=== PATIENT | male | born 1970 | race African-American/Black ===

== ENCOUNTER 2017-01-24 01:12 | Emergency (ER) | payer MEDICAID ==
[~2017-01-24] VITALS: Ht 177.8 cm; Wt 110.0 kg
[2017-01-24] MEDS ORDERED: ONDANSETRON ODT 4 MG ONE (01:57)
[2017-01-24] MEDS ORDERED: OXYcodone/APAP 5/325MG TABLET ONE (01:57)
[2017-01-24] MEDS ORDERED: OXYcodone/APAP 5/325MG TABLET PO ONE (02:00)
[2017-01-24] MEDS ORDERED: ONDANSETRON ODT 4 MG PO ONE (02:00)
[2017-01-24 02:46] VITALS: BP 135/74
== END 2017-01-24 02:48 | disposition home or self-care (01) ==
LOC: ED 02:42
DX: S83.91XA Sprain of unspecified site of right knee, initial encounter (principal); X58.XXXA Exposure to other specified factors, initial encounter; Y93.89 Activity, other specified; Y92.69 Other specified industrial and construction area as the place of occurrence of the external cause; Y99.8 Other external cause status
CPT/HCPCS: 29505; 73564; 99284; Q0162

== ENCOUNTER 2017-03-03 11:14 | Emergency (ER) | payer MEDICAID ==
[~2017-03-03] VITALS: Ht 177.8 cm; Wt 107.5 kg
[2017-03-03 11:22] VITALS: BP 144/78
[2017-03-03] MEDS ORDERED: FLUORESCEIN OPHTHALMIC 1 MG STRIP ONE (11:54)
[2017-03-03] MEDS ORDERED: PROPARACAINE OPHTH 0.5%, 15ML ONE (11:54)
[2017-03-03] MEDS ORDERED: FLUORESCEIN OPHTHALMIC 1 MG STRIP EACHEYE ONE (12:00)
[2017-03-03] MEDS ORDERED: PROPARACAINE OPHTH 0.5%, 15ML EACHEYE ONE (12:00)
== END 2017-03-03 12:35 | disposition home or self-care (01) ==
LOC: ED 12:25
DX: H10.023 Other mucopurulent conjunctivitis, bilateral (principal)
CPT/HCPCS: 99283

== ENCOUNTER 2017-05-11 14:23 | Emergency (ER) | payer MEDICAID ==
[~2017-05-11] VITALS: Ht 177.8 cm; Wt 102.5 kg
[2017-05-11] MEDS ORDERED: SODIUM CHLORIDE 0.9% 1,000ML IVBOLUS ONE (16:00)
[2017-05-11] MEDS ORDERED: SODIUM CHLORIDE FLUSH 10ML SYR IVF ONE (16:00)
[2017-05-11 16:12] LABS: MEAN CORPUSCULAR HEMOGLOBIN 27.7 pg (27.5-34.5); MEAN CORPUSCULAR HGB CONC 32.3 g/dL (33.2-36.2); MEAN CORPUSCULAR VOLUME 85.7 fL (81-97); MEAN PLATELET VOLUME 8.4 fL (7.4-10.4); PLATELET COUNT 507 x10^3/uL (130-400); RED BLOOD COUNT 5.14 x10^6/uL (4.38-5.82); RED CELL DISTRIBUTION WIDTH 14.7 % (9.4-14.8)
[2017-05-11 16:20] LABS: ALBUMIN 3.4 g/dL (3.4-5.0); ANION GAP 8 mmol/L (5-15); CALCIUM 8.5 mg/dL (8.5-10.1); CHLORIDE 105 mmol/L (98-107); CREATININE 0.92 mg/dL (0.7-1.3)
[2017-05-11 16:30] LABS: BASOPHILS % (AUTO) 1 % (0-1); EOSINOPHILS % (AUTO) 1 % (1-7); LYMPHOCYTES # (AUTO) 1.81 x10^3/uL (1-3.4); LYMPHOCYTES % (AUTO) 12 % (22-44); MD SCAN; MONOCYTES # (AUTO) 2.04 x10^3/uL (0.2-0.8); MONOCYTES % (AUTO) 14 % (2-9); NEUTROPHILS # (AUTO) 10.48 x10^3/uL (1.8-6.8); NEUTROPHILS % (AUTO) 71 % (42-75)
[2017-05-11] MEDS ORDERED: KETOROLAC 30 MG/1 ML IM ONE (16:30)
[2017-05-11] MEDS ORDERED: KETOROLAC 30 MG/1 ML ONE (16:31)
[2017-05-11] MEDS ORDERED: CEFTRIAXONE 1,000 MG ONE (16:43)
[2017-05-11 16:55] VITALS: BP 120/90
[2017-05-11] MEDS ORDERED: CEFTRIAXONE 1,000 MG IM ONE (17:00)
== END 2017-05-11 17:34 | disposition home or self-care (01) ==
LOC: ED 16:52
DX: J01.00 Acute maxillary sinusitis, unspecified (principal); D72.829 Elevated white blood cell count, unspecified; M19.90 Unspecified osteoarthritis, unspecified site
CPT/HCPCS: 36415; 71046; 80048; 82040; 85025; 96372; 99285; J0696; J1885

== ENCOUNTER 2018-06-18 19:16 | Emergency (ER) | payer MEDICAID ==
[~2018-06-18] VITALS: Ht 177.8 cm; Wt 95.3 kg
[2018-06-18 19:25] VITALS: BP 89/58
--- NOTE | 2018-06-18 21:11 | NUR ---
NOT IN LOBBY @346
--- NOTE | 2018-06-18 21:38 | NUR ---
ASSOCIATE PROFESSOR OF FORESTRY: NIL WHEN CALLED FOR REPEAT VS
--- NOTE | 2018-06-18 22:42 | NUR ---
TOW OPERATOR: NIL WHEN CALLED FOR REPEAT VS
--- NOTE | 2018-06-18 22:44 | NUR ---
NO ANSWER CALLED FOR ROOM, PT NOT IN LOBBY
[2018-06-19] MEDS ORDERED: HEPARIN 5,000 UNITS/ML, 1ML ONE (01:05)
== END 2018-06-18 22:45 | disposition left against medical advice (07) ==
LOC: ED 22:39
DX: J02.9 Acute pharyngitis, unspecified (principal)
CPT/HCPCS: 99281

== ENCOUNTER 2018-06-19 20:02 | Inpatient (IN) | payer MEDICAID ==
[~2018-06-19] VITALS: Ht 177.8 cm; Wt 93.2 kg
[2018-06-19] MEDS ORDERED: AMPICILLIN/SULBACTAM 3 GM in SODIUM CHLORIDE 0.9% 100 ML IV ONE (20:30)
[2018-06-19] MEDS ORDERED: SODIUM CHLORIDE FLUSH 10ML SYR IVF ONE (20:30)
[2018-06-19] MEDS ORDERED: DEXAMETHASONE 4 MG/ML, 1ML IVPush ONE (20:30)
[2018-06-19] MEDS ORDERED: SODIUM CHLORIDE 0.9% 1,000ML IVBOLUS ONE (21:00)
[2018-06-19] MEDS ORDERED: ACETAMINOPHEN 500 MG TABLET ONE (21:15)
[2018-06-19 21:22] LABS: MEAN CORPUSCULAR HEMOGLOBIN 27.7 pg (27.5-34.5); MEAN CORPUSCULAR HGB CONC 31.9 g/dL (33.2-36.2); MEAN CORPUSCULAR VOLUME 86.7 fL (81-97); MEAN PLATELET VOLUME 8.8 fL (7.4-10.4); PLATELET COUNT 298 x10^3/uL (130-400); RED BLOOD COUNT 5.73 x10^6/uL (4.38-5.82); RED CELL DISTRIBUTION WIDTH 14.2 % (9.4-14.8)
[2018-06-19 21:25] LABS: MD YES
[2018-06-19] MEDS ORDERED: ONDANSETRON 2MG/ML, 2ML IVPush ONE (21:30)
[2018-06-19 21:33] LABS: ALBUMIN 3.4 g/dL (3.4-5.0); ANION GAP 6 mmol/L (5-15); CHLORIDE 105 mmol/L (98-107); CREATININE 1.07 mg/dL (0.7-1.3)
[2018-06-19] MEDS ORDERED: ACETAMINOPHEN 500 MG TABLET PO ONE (21:40)
--- NOTE | 2018-06-19 21:40 | NUR ---
PT HERE FOR SORE THROAT X 5 DAYS, FEVER, COUGH AND CONGESTION. PT MEDICATED WITH TYLENOL. HR ELEVATED. PA AT BEDSIDE.
[2018-06-19] MEDS ORDERED: ONDANSETRON 2MG/ML, 2ML ONE (21:50)
[2018-06-19] MEDS ORDERED: DEXAMETHASONE 4 MG/ML, 1ML ONE (21:50)
[2018-06-19 22:03] LABS: BAND#(MANUAL) 0.16 x10^3/uL; BANDS%(MANUAL) 1 % (0-7); BASOS#(MANUAL) 0.16 x10^3/uL (0-0.1); BASOS% (MANUAL) 1 % (0-1); LYMPH#(MANUAL) 1.96 x10^3/uL (1-3.4); LYMPHS% (MANUAL) 12 % (22-44); MONOS% (MANUAL) 8 % (2-9); SEG#(MANUAL) 12.71 x10^3/uL (1.8-6.8); SEGS% (MANUAL) 78 % (42-75)
[2018-06-19 22:04] LABS: <PLATELET ESTIMATE> ADEQUATE; <PLT MORPHOLOGY> NORMAL PLT MORPH; <RBC MORPHOLOGY> NORMAL
--- NOTE | 2018-06-19 22:26 | NUR ---
PIV PLACED. ABX AND NS RUNNING. PT SAYS PAIN HAS IMPROVED. MD AT BEDSIDE.CALL LIGHT IN REACH
[2018-06-19 22:27] LABS: RAPID INFLUENZA A Negative (Negative); RAPID INFLUENZA B Negative (Negative)
--- NOTE | 2018-06-19 22:51 | NUR ---
PT TO CT
[2018-06-19] MEDS ORDERED: OMNIPAQUE 350 MG/ML, 100ML BOTTLE ONE (23:03)
--- NOTE | 2018-06-19 23:33 | NUR ---
PT BACK FROM CT. HR SLIGHTLY IMPROVED. PT TO BE ADMITTED. PT AWARE. CALL LIGHT IN REACH
[2018-06-19] MEDS ORDERED: RACEPINEPHRINE INH 2.25%, 0.5ML ONE (23:45)
[2018-06-20] MEDS ORDERED: RACEPINEPHRINE INH 2.25%, 0.5ML NPPB ONE
--- NOTE | 2018-06-20 00:30 | NUR ---
PT GIVEN ICE CHIPS.OK PER MD. HR RATE IMPROVED. PT HAS SUCTION TO ASSIST WITH SECRETIONS. CALL LIGHT IN REACH
--- NOTE | 2018-06-20 02:27 | NUR ---
BREAK RN-PT WANTING TO LEAVE AND SIGN OUT AMA BUT WANTS RX'S. HOSPITALIST NOTIFIED AND IS TALKING TO PT AT THIS TIME.
--- NOTE | 2018-06-20 02:48 | NUR ---
PT DEMANDING FOOD NOW THAT HIS THROAT FEELS BETTER. WENT OF RISKS OF EATING INCLUDING THE POTENTIAL OF ASPIRATION. PT UNDERSTANDS RISK AND STILL WANTS FOOD. PT SIGNED AMA PAPERS THAT HE UNDERSTANDS POTENTIAL RISK. THIS RN WITNESSED SIGNATURE. PT GIVEN APPLESAUCE, PUDDING AND CEREAL. PT HAPPY WITH THIS. PT HAS NO OTHER NEEDS. CALL LIGHT IN REACH
--- NOTE | 2018-06-20 03:43 | NUR ---
PT FINISHED FOOD AND IS BREATHING WELL. VSS. PT GIVEN WARM BLANKET AND IS NOW SLEEPING. PT HAS NO OTHER NEEDS. CALL LIGHT IN REACH
[2018-06-20] MEDS ORDERED: ONDANSETRON 2MG/ML, 2ML IVPush PRN (04:30)
[2018-06-20] MEDS ORDERED: DEXAMETHASONE 20 MG in SODIUM CHLORIDE 0.9% 50 ML IV SCH (04:30)
[2018-06-20] MEDS ORDERED: morphine SULFATE 10 MG/ML, 1ML IVPush PRN (04:30)
[2018-06-20] MEDS ORDERED: AMPICILLIN/SULBACTAM 3 GM in SODIUM CHLORIDE 0.9% 100 ML IV SCH (04:30)
[2018-06-20] MEDS ORDERED: LACTATED RINGERS 1,000 ML IV SCH (04:30)
[2018-06-20] MEDS ORDERED: KETOROLAC 30 MG/1 ML IV PRN (04:30)
[2018-06-20] MEDS ORDERED: ACETAMINOPHEN 325 MG TABLET PO PRN (04:30)
--- NOTE | 2018-06-20 05:08 | NUR ---
ABX RUNNING. PT IS RESTING WITH NO NEEDS AT THIS TIME. CALL LIGHT IN REACH
[2018-06-20 05:27] LABS: BASOPHILS % (AUTO) 0 % (0-1); EOSINOPHILS % (AUTO) 0 % (1-7); LYMPHOCYTES # (AUTO) 0.51 x10^3/uL (1-3.4); LYMPHOCYTES % (AUTO) 3 % (22-44); MD NO; MEAN CORPUSCULAR HEMOGLOBIN 28.8 pg (27.5-34.5); MEAN CORPUSCULAR HGB CONC 33.1 g/dL (33.2-36.2); MEAN CORPUSCULAR VOLUME 87.2 fL (81-97); MEAN PLATELET VOLUME 8.8 fL (7.4-10.4); MONOCYTES # (AUTO) 0.79 x10^3/uL (0.2-0.8); MONOCYTES % (AUTO) 5 % (2-9); NEUTROPHILS # (AUTO) 14.17 x10^3/uL (1.8-6.8); NEUTROPHILS % (AUTO) 92 % (42-75); PLATELET COUNT 304 x10^3/uL (130-400); RED BLOOD COUNT 5.15 x10^6/uL (4.38-5.82); RED CELL DISTRIBUTION WIDTH 14.6 % (9.4-14.8)
[2018-06-20 05:36] LABS: ANION GAP 7 mmol/L (5-15); CALCIUM 8.7 mg/dL (8.5-10.1); CHLORIDE 104 mmol/L (98-107); CREATININE 1.09 mg/dL (0.7-1.3)
[2018-06-20 06:44] VITALS: BP 127/74
[2018-06-20] MEDS ORDERED: FAMOTIDINE 20 MG/2 ML IVPush SCH (09:00)
== END 2018-06-20 07:50 | disposition left against medical advice (07) | DRG 153 ==
LOC: ED 21:27 → EDIP 06-20 00:20 → CSU 06-20 05:50
PROVIDERS: ADMIT Family Medicine; ATTEND Family Medicine
DX: J02.0 Streptococcal pharyngitis (principal); J38.4 Edema of larynx; F17.200 Nicotine dependence, unspecified, uncomplicated; J35.2 Hypertrophy of adenoids; Z87.442 Personal history of urinary calculi; Z53.21 Procedure and treatment not carried out due to patient leaving prior to being seen by health care provider; M19.90 Unspecified osteoarthritis, unspecified site; R00.0 Tachycardia, unspecified
CPT/HCPCS: 36415; 70491; 71045; 80048; 82040; 83605; 85025; 87040; 87081; 87400; 93005; 96365; 96375; 99291; G0378; J0295; J1100; J2405; Q9967; J7030; J7120

== ENCOUNTER 2018-11-07 21:23 | Emergency (ER) | payer MEDICAID ==
[~2018-11-07] VITALS: Ht 177.8 cm; Wt 98.6 kg
[2018-11-07 21:40] VITALS: BP 188/71
== END 2018-11-07 22:35 | disposition home or self-care (01) ==
LOC: ED 21:57
DX: N34.1 Nonspecific urethritis (principal); M19.90 Unspecified osteoarthritis, unspecified site
CPT/HCPCS: 87491; 87591; 96372; 99283; J0696

== ENCOUNTER 2019-03-11 07:01 | Emergency (ER) | payer MEDICAID ==
[~2019-03-11] VITALS: Ht 177.8 cm; Wt 100.0 kg
[2019-03-11 07:03] VITALS: BP 125/77
[2019-03-11] MEDS ORDERED: KETOROLAC 30 MG/1 ML ONE (07:14)
[2019-03-11] MEDS ORDERED: OXYcodone/APAP 5/325MG TABLET ONE (07:14)
--- NOTE | 2019-03-11 07:15 | NUR ---
THIS IS A 48 YO M BIB [facility] FOR RIGHT KNEE PAIN. THEY PATIENT BELIEVES HE IS HAVING A GOUT FLARE UP. RESPIRATIONS ARE EVEN AND UNLABORED. PATIENT IS IN NO ACUTE DISTRESS. PATIENT STATES THAT HE LAST USED METH LAST NIGHT FOR THE PAIN. GIVEN HEAT PACK UPON REQUEST. PATIENT IS RESTING ON GURNEY WITH SIDE RAILS UPX2 AND CALL LIGHT IN REACH.
--- NOTE | 2019-03-11 07:24 | NUR ---
PATIENT MEDICATED PER EMAR. TRANSPORTED TO RADIOLOGY.
[2019-03-11] MEDS ORDERED: OXYcodone/APAP 5/325MG TABLET PO ONE (07:30)
[2019-03-11] MEDS ORDERED: KETOROLAC 30 MG/1 ML IM ONE (07:30)
[2019-03-11 08:04] LABS: BASOPHILS # (AUTO) 0.03 x10^3/uL (0-0.1); BASOPHILS % (AUTO) 0 % (0-1); EOSINOPHILS # (AUTO) 0.11 x10^3/uL (0-0.4); EOSINOPHILS % (AUTO) 1 % (1-7); LYMPHOCYTES # (AUTO) 1.16 x10^3/uL (1-3.4); LYMPHOCYTES % (AUTO) 11 % (22-44); MD NO; MEAN CORPUSCULAR HEMOGLOBIN 28.2 pg (27.5-34.5); MEAN CORPUSCULAR HGB CONC 32.2 g/dL (33.2-36.2); MEAN CORPUSCULAR VOLUME 87.8 fL (81-97); MEAN PLATELET VOLUME 7.8 fL (7.4-10.4); MONOCYTES # (AUTO) 1.42 x10^3/uL (0.2-0.8); MONOCYTES % (AUTO) 14 % (2-9); NEUTROPHILS # (AUTO) 7.83 x10^3/uL (1.8-6.8); NEUTROPHILS % (AUTO) 74 % (42-75); PLATELET COUNT 390 x10^3/uL (130-400); RED BLOOD COUNT 4.91 x10^6/uL (4.38-5.82); RED CELL DISTRIBUTION WIDTH 15.5 % (9.4-14.8)
--- NOTE | 2019-03-11 08:13 | NUR ---
PATIENT USED URINAL.
--- NOTE | 2019-03-11 08:44 | NUR ---
PATIENT DEMONSTRATED PROPER USE OF CRUTCHES.
== END 2019-03-11 09:04 | disposition home or self-care (01) ==
LOC: ED 08:46
DX: M17.11 Unilateral primary osteoarthritis, right knee (principal); M25.461 Effusion, right knee; F17.210 Nicotine dependence, cigarettes, uncomplicated
CPT/HCPCS: 36415; 73564; 84550; 85025; 96372; 99284; J1885

== ENCOUNTER 2019-09-05 06:54 | Observation (INO) | payer MEDICAID ==
[~2019-09-05] VITALS: Ht 172.7 cm; Wt 125.3 kg
[2019-09-05] MEDS ORDERED: AMPICILLIN/SULBACTAM 3 GM in SODIUM CHLORIDE 0.9% 100 ML IV ONE (07:30)
[2019-09-05] MEDS ORDERED: HYDROmorphone 1 MG/ML, 1ML INJ IVPush PRN (07:30)
[2019-09-05] MEDS ORDERED: SODIUM CHLORIDE FLUSH 10ML SYR IVF ONE (07:30)
[2019-09-05] MEDS ORDERED: HYDROmorphone 1 MG/ML, 1ML INJ ONE (07:34)
--- NOTE | 2019-09-05 07:42 | NUR ---
PT HAS CO RIGHT KNEE PAIN. TITANIUM KNEE REPLACEMENT LAST MONTH. KNEE IS SWOLLEN AND WARM TO TOUCH. PAIN 7/10. SYMPTOMS WORSENED W IN LAST WEEK. PEDAL PULSE 2+. CMS INTACT. PT DENIES CP, SOB. VSS, IV ESTABLSIHED, MEDICATED PER ORDERS. BLOOD CULTURES DRAWN.
[2019-09-05 07:53] LABS: HCT (SEDRATE) 40.5 % (39.2-51.8)
--- NOTE | 2019-09-05 08:03 | NUR ---
PT STATES PAIN IS 3/10. APPLIED 2 L O2 WHILE SLEEPING. RA 87% SLEEPING. NOW 97% 2L O2
[2019-09-05 08:05] LABS: ALANINE AMINOTRANSFERASE 18 U/L (12-78); ALBUMIN 3.1 g/dL (3.4-5.0); ANION GAP 9 mmol/L (5-15); CALCIUM 8.7 mg/dL (8.5-10.1); CHLORIDE 109 mmol/L (98-107); CREATININE 0.93 mg/dL (0.7-1.3)
[2019-09-05 08:11] LABS: ALKALINE PHOSPHATASE 135 U/L (45-117); BILIRUBIN,TOTAL 0.2 mg/dL (0.2-1.0); TOTAL PROTEIN 7.8 g/dL (6.4-8.2)
[2019-09-05 08:33] LABS: BASOPHILS # (AUTO) 0.05 x10^3/uL (0-0.1); BASOPHILS % (AUTO) 1 % (0-1); EOSINOPHILS # (AUTO) 0.25 x10^3/uL (0-0.4); EOSINOPHILS % (AUTO) 3 % (1-7); LYMPHOCYTES # (AUTO) 1.67 x10^3/uL (1-3.4); LYMPHOCYTES % (AUTO) 20 % (22-44); MD NO; MEAN CORPUSCULAR HEMOGLOBIN 27.7 pg (27.5-34.5); MEAN CORPUSCULAR HGB CONC 32.5 g/dL (33.2-36.2); MEAN CORPUSCULAR VOLUME 85.2 fL (81-97); MEAN PLATELET VOLUME 8.3 fL (7.4-10.4); MONOCYTES # (AUTO) 1.05 x10^3/uL (0.2-0.8); MONOCYTES % (AUTO) 12 % (2-9); NEUTROPHILS # (AUTO) 5.57 x10^3/uL (1.8-6.8); NEUTROPHILS % (AUTO) 65 % (42-75); PLATELET COUNT 461 x10^3/uL (130-400); RED CELL DISTRIBUTION WIDTH 15.4 % (9.4-14.8)
--- NOTE | 2019-09-05 10:16 | NUR ---
PT REFUSING KNEE ASPIRATION AT THIS TIME. RN AND PA EDUCATED PT ON POC. "I JUST WANT ANTIBIOTICS" STATES PT. WILL DISCUSS MD PT CONCERNS
[2019-09-05] MEDS ORDERED: LIDOCAINE 1%-EPI 1:100K, 20ML SQ ONE (10:30)
[2019-09-05] MEDS ORDERED: KETAMINE 100 MG/ML, 5ML IV ONE (10:56)
[2019-09-05] MEDS ORDERED: FENTANYL PF 100 MCG/2ML IVPush ONE (10:59)
[2019-09-05] MEDS ORDERED: KETAMINE 10 MG/ML, 20ML ONE (11:12)
[2019-09-05] MEDS ORDERED: FENTANYL PF 100 MCG/2ML ONE (11:14)
[2019-09-05] MEDS ORDERED: LIDOCAINE 1%-EPI 1:100K, 20ML ONE (11:19)
--- NOTE | 2019-09-05 11:36 | NUR ---
PT SET UP FOR KNEE ASPIRATION. PA BEDSIDE.
[2019-09-05] MEDS ORDERED: LORazepam 2 MG/ML, 1ML ONE (11:57)
--- NOTE | 2019-09-05 12:05 | NUR ---
PROCEDURE COMPLETE, PT TOLERATED, VSS MEDS ADMINISTERED 100 MCG FENT 60MG KETAMINE 2MG ATIVAN
[2019-09-05] MEDS ORDERED: LORazepam 2 MG/ML, 1ML IVPush ONE (12:30)
[2019-09-05] MEDS ORDERED: POLYETHYLENE GLYCOL 17 GM PACKET PO PRN (13:00)
[2019-09-05] MEDS ORDERED: ONDANSETRON ODT 4 MG PO PRN (13:00)
[2019-09-05] MEDS ORDERED: ONDANSETRON 2MG/ML, 2ML IVPush PRN (13:00)
[2019-09-05] MEDS ORDERED: ACETAMINOPHEN 325 MG TABLET PO PRN (13:00)
[2019-09-05] MEDS ORDERED: DOCUSATE 100 MG CAPSULE PO PRN (13:00)
--- NOTE | 2019-09-05 13:16 | NUR ---
PT RESTING, TALKING ON PHONE. PT VSS.
[2019-09-05] MEDS: morphine SULFATE 10 MG/ML, 1ML IVPush PRN (14:26)
[2019-09-05] MEDS: LACTATED RINGERS 1,000 ML IV SCH ×2 (14:27→21:00)
[2019-09-05] MEDS: NICOTINE 21 MG/24 HR PATCH.TD24 TD SCH (14:27)
[2019-09-05 14:33] VITALS: BP 142/85
[2019-09-05] MEDS: KETOROLAC 30 MG/1 ML IVPush SCH ×2 (15:30→22:00)
[2019-09-05] MEDS ORDERED: VANCOMYCIN PER PHARMACY MC PRN (17:30)
[2019-09-05] MEDS ORDERED: PHARMACOKINETIC CONSULTATION MC ONE ×2 (17:30)
[2019-09-05] MEDS: OXYcodone/APAP 7.5/325MG TABLET PO PRN ×2 (18:04→23:39)
[2019-09-05] MEDS: CEFEPIME 2 GM in DEXTROSE 5% 100 ML IV SCH (18:06)
[2019-09-05 19:07] VITALS: BP 144/84
[2019-09-05] MEDS: VANCOMYCIN 2,400 MG in SODIUM CHLORIDE 0.9% 500 ML IV SCH (19:30)
[2019-09-06 00:54] VITALS: BP 153/86
[2019-09-06] MEDS: LACTATED RINGERS 1,000 ML IV SCH ×2 (01:25→12:09)
[2019-09-06] MEDS: CEFEPIME 2 GM in DEXTROSE 5% 100 ML IV SCH ×2 (01:45→10:27)
[2019-09-06] MEDS: KETOROLAC 30 MG/1 ML IVPush SCH ×2 (02:58→09:51)
[2019-09-06 03:22] LABS: AMPHETAMINE SCREEN, URINE Negative (Negative); BARBITURATE SCREEN, URINE Negative (Negative); BENZODIAZEPINE SCREEN, URINE Negative (Negative); CANNABINOID SCREEN, URINE Negative (Negative); COCAINE SCREEN, URINE Negative (Negative); METHADONE SCREEN, URINE Negative (Negative); OPIATE SCREEN, URINE Positive (Negative)
[2019-09-06] MEDS: OXYcodone/APAP 7.5/325MG TABLET PO PRN (05:36)
[2019-09-06] MEDS: morphine SULFATE 10 MG/ML, 1ML IVPush PRN (06:16)
[2019-09-06 06:29] LABS: MEAN CORPUSCULAR HEMOGLOBIN 27.3 pg (27.5-34.5); MEAN CORPUSCULAR HGB CONC 31.7 g/dL (33.2-36.2); MEAN CORPUSCULAR VOLUME 86.3 fL (81-97); MEAN PLATELET VOLUME 7.9 fL (7.4-10.4); PLATELET COUNT 389 x10^3/uL (130-400); RED BLOOD COUNT 4.37 x10^6/uL (4.38-5.82); RED CELL DISTRIBUTION WIDTH 15.4 % (9.4-14.8)
[2019-09-06 07:02] VITALS: BP 135/90
[2019-09-06 07:17] LABS: BASOPHILS # (AUTO) 0.03 x10^3/uL (0-0.1); BASOPHILS % (AUTO) 1 % (0-1); EOSINOPHILS # (AUTO) 0.29 x10^3/uL (0-0.4); EOSINOPHILS % (AUTO) 4 % (1-7); LYMPHOCYTES # (AUTO) 0.98 x10^3/uL (1-3.4); LYMPHOCYTES % (AUTO) 13 % (22-44); MD SCAN; MONOCYTES # (AUTO) 0.78 x10^3/uL (0.2-0.8); MONOCYTES % (AUTO) 11 % (2-9); NEUTROPHILS # (AUTO) 5.21 x10^3/uL (1.8-6.8); NEUTROPHILS % (AUTO) 72 % (42-75)
[2019-09-06] MEDS: VANCOMYCIN 2,400 MG in SODIUM CHLORIDE 0.9% 500 ML IV SCH (07:39)
[2019-09-06 12:58] VITALS: BP 115/79
[2019-09-06] MEDS: NICOTINE 21 MG/24 HR PATCH.TD24 TD SCH (13:58)
== END 2019-09-06 14:28 | disposition home or self-care (01) ==
LOC: ED 07:30 → INTOOBSV 09:59 → EDIP 09:59 → 4NE 13:38 → DCLOUNGE 09-06 14:24
PROVIDERS: ADMIT Family Medicine; ATTEND Family Medicine
DX: M25.561 Pain in right knee (principal); M25.461 Effusion, right knee; M00.9 Pyogenic arthritis, unspecified; M17.10 Unilateral primary osteoarthritis, unspecified knee; D47.3 Essential (hemorrhagic) thrombocythemia; F15.11 Other stimulant abuse, in remission; E66.9 Obesity, unspecified; F17.200 Nicotine dependence, unspecified, uncomplicated; Z87.442 Personal history of urinary calculi; Z96.651 Presence of right artificial knee joint; Z59.0 Homelessness; Z79.899 Other long term (current) drug therapy
CPT/HCPCS: 20610; 36415; 73564; 80053; 80307; 83605; 84550; 85025; 85651; 86140; 87040; 96365; 96366; 96367; 96375; 96376; 99152; 99284; G0378; J0295; J1170; J1885; J2060; J2270; J3010; J3370; J7040; J7120

== ENCOUNTER 2019-09-17 17:45 | Emergency (ER) | payer MEDICAID ==
[~2019-09-17] VITALS: Ht 177.8 cm; Wt 118.2 kg
[2019-09-17 18:34] VITALS: BP 110/58
--- NOTE | 2019-09-17 18:34 | NUR ---
PT RESTING IN BED, CALL LIGHT IN REACH
--- NOTE | 2019-09-17 18:48 | NUR ---
REPORT TO RABIA THACKER
== END 2019-09-17 19:52 | disposition home or self-care (01) ==
LOC: ED 17:55
DX: M79.671 Pain in right foot (principal); G89.11 Acute pain due to trauma; X58.XXXA Exposure to other specified factors, initial encounter; Y93.89 Activity, other specified; Y92.009 Unspecified place in unspecified non-institutional (private) residence as the place of occurrence of the external cause; Y99.8 Other external cause status
CPT/HCPCS: 99283

== ENCOUNTER 2020-08-05 04:35 | Emergency (ER) | payer MEDICAID ==
[~2020-08-05] VITALS: Ht 172.7 cm; Wt 119.7 kg
[2020-08-05 04:39] VITALS: BP 150/83
--- NOTE | 2020-08-05 05:10 | NUR ---
PT AMBULATED TO ROOM 4, C/O PAIN TO LEFT KNEE. MD TO BEDSIDE TO SEE PT AND EVAL.
[2020-08-05] MEDS ORDERED: ACETAMINOPHEN 500 MG TABLET ONE (05:26)
[2020-08-05] MEDS ORDERED: ACETAMINOPHEN 500 MG TABLET PO ONE (05:30)
--- NOTE | 2020-08-05 05:30 | NUR ---
PT RESTING COMFORTABLY, NO ACUTE DISTRESS. PT PLEASANT AND COOPERATIVE. MEDICATIONS GIVEN PER EMAR ORDERS, AND PT TO HAVE TORI BANDAGE WRAPPED AROUND LEFT KNEE.
--- NOTE | 2020-08-05 05:43 | NUR ---
F/U AND D/C INSTRUCTIONS GIVEN TO PT AND HE V/U. PT GIVEN PRESCRIPTION FOR PAIN MEDS WELL.
--- NOTE | 2020-08-05 05:46 | NUR ---
Lazaro kelly in [facility] - 08/05/20 at 0547 by TARA PTS MORNING BREAKFAST TRAY OF FOOD ORDERED.
--- NOTE | 2020-08-05 05:47 | NUR ---
TORI BANDAGE PLACED TO LEFT KNEE. PT TOLERATED WELL, AND HAS GOOD FEELING AND PULSES TO LOWER LEFT LEG.
--- NOTE | 2020-08-05 06:32 | NUR ---
F/U AND D/C INSTRUCTIONS AND PRESCRIPTIONS GIVEN TO PT AND HE V/U. PT WHEELED TO WAITING ROOM WHERE HE IS WAITING FOR HIS SISTER TO COME AND PICK HIM UP.
== END 2020-08-05 06:37 | disposition home or self-care (01) ==
LOC: ED 05:25
DX: S76.912A Strain of unspecified muscles, fascia and tendons at thigh level, left thigh, initial encounter (principal); X58.XXXA Exposure to other specified factors, initial encounter; Y93.89 Activity, other specified; Y92.89 Other specified places as the place of occurrence of the external cause; Y99.8 Other external cause status
CPT/HCPCS: 99282

== ENCOUNTER 2020-11-08 11:15 | Emergency (ER) | payer MEDICAID ==
[~2020-11-08] VITALS: Ht 177.8 cm; Wt 117.7 kg
[2020-11-08 11:20] VITALS: BP 122/72
--- NOTE | 2020-11-08 11:39 | NUR ---
PT REPORTS CLEANING HOUSE YESTERDAY AND BELIEVES HE GOT SOME CLEANING SOLUTION IN HIS EYES. STARTING LAST NIGHT BILATERAL EYES ITCH, IRRIATION, FEEL ROUGH.
[2020-11-08] MEDS ORDERED: FLUORESCEIN OPHTHALMIC 1 MG STRIP ONE (11:56)
[2020-11-08] MEDS ORDERED: PROPARACAINE OPHTH 0.5%, 15ML ONE (11:57)
--- NOTE | 2020-11-08 11:58 | NUR ---
EYE STRIP AND DROPS PULLED AND GIVEN TO MEGAN HUTCHINSON.
[2020-11-08] MEDS ORDERED: PROPARACAINE OPHTH 0.5%, 15ML EACHEYE ONE (12:00)
[2020-11-08] MEDS ORDERED: FLUORESCEIN OPHTHALMIC 1 MG STRIP EACHEYE ONE (12:00)
[2020-11-08] MEDS ORDERED: MOXIFLOXACIN OPHTH O.5%, 3ML EACHEYE ONE (12:30)
[2020-11-08] MEDS ORDERED: KETOROLAC 30 MG/1 ML IM ONE (12:30)
[2020-11-08] MEDS ORDERED: KETOROLAC 30 MG/1 ML ONE (12:32)
--- NOTE | 2020-11-08 12:38 | NUR ---
AWAITING EYE DROPS FROM PHARMACY
== END 2020-11-08 13:15 | disposition home or self-care (01) ==
LOC: ED 13:09
DX: S05.02XA Injury of conjunctiva and corneal abrasion without foreign body, left eye, initial encounter (principal); X58.XXXA Exposure to other specified factors, initial encounter; Y93.89 Activity, other specified; Y92.89 Other specified places as the place of occurrence of the external cause; Y99.8 Other external cause status
CPT/HCPCS: 96372; 99283; J1885